=== PATIENT | female | born 1995 | race Caucasian/White ===

== ENCOUNTER 2017-11-04 11:17 | Emergency (ER) | payer MEDICAID ==
[~2017-11-04] VITALS: Ht 154.9 cm; Wt 81.6 kg
[2017-11-04 11:27] VITALS: BP_SYST 147
[2017-11-04] MEDS ORDERED: KETOROLAC TROMETHAMINE 60 MG/2 ML VIAL IM ONE (12:00)
[2017-11-04 12:22] VITALS: BP_SYST 135
== END 2017-11-04 12:12 | disposition home or self-care (01) ==
LOC: SED 11:17
DX: M54.32 Sciatica, left side (principal); G43.909 Migraine, unspecified, not intractable, without status migrainosus
CPT/HCPCS: 96372; 99283; J1885

== ENCOUNTER 2019-03-15 11:16 | Emergency (ER) | payer MEDICAID ==
[~2019-03-15] VITALS: Ht 154.9 cm; Wt 81.6 kg
[2019-03-15 11:23] VITALS: BP_SYST 126
[2019-03-15] MEDS ORDERED: IBUPROFEN 800 MG TABLET PO ONE (11:45)
[2019-03-15 12:19] LABS: BILIRUBIN,URINE NEGATIVE (NEGATIVE); BLOOD, URINE NEGATIVE (NEGATIVE); CLARITY/URINE CLEAR (CLEAR); COLOR,URINE YELLOW (YELLOW); GLUCOSE,URINE NEGATIVE (NEGATIVE); KETONES,URINE NEGATIVE (NEGATIVE); LEUKOCYTE ESTERASE ,URINE NEGATIVE (NEGATIVE); NITRITE, URINE NEGATIVE (NEGATIVE); PROTEIN URINE NEGATIVE (NEGATIVE); UROBILINOGEN,URINE 0.2 (0.2-1.0)
[2019-03-15 13:08] VITALS: BP_SYST 132
== END 2019-03-15 13:02 | disposition home or self-care (01) ==
LOC: SED 11:16
DX: N83.201 Unspecified ovarian cyst, right side (principal); G43.909 Migraine, unspecified, not intractable, without status migrainosus
CPT/HCPCS: 76830-TC; 76857; 81003; 81025; 99284